=== PATIENT | male | born 1955 | race Caucasian/White ===

== ENCOUNTER 2020-03-06 11:48 | Emergency (ER) | payer OTHER, SELFPAY ==
[2020-03-06 12:15] VITALS: BP 172/96; PULSE 62; RESP 16; TEMP 37.1; O2SAT 98
--- NOTE | 2020-03-06 12:45 | ED.GENADULT ---
HPI - General Adult General Chief complaint: Upper Respiratory Infection Stated complaint: Sore Throat/Headaches Time Seen by Provider: 03/06/20 12:45 Source: patient and RN notes reviewed Mode of arrival: ambulatory Limitations: no limitations History of Present Illness HPI narrative: 65-year-old male presents with complaints of upper respiratory infection symptoms, sore throat with pus pockets for the past 3-4 days. Perry reports that everyone in household has been ill, can not recall who was ill first. Symptoms increased over the past 24-48 hours, step sone symptoms increased, everyone came in for evaluation to rule out COVID-19. Tylenol, last on 03/05/20 and Ibuprofen last today at 09:00 with little relief. Sore throat. Pain bilateral. Denies cough and chest congestion. Rhinorrhea and nasal congestion. Exacerbating factors swallowing. No high fevers, sweats, or chills. No nausea, vomiting, and abdominal pain. Denies chest pain, dyspnea, coughing up blood, jaw pain, facial pain, foreign body sensation. The patient reports he have not been diagnosed with COVID-19. The patient reports he is not waiting for the results of a COVID-19 lab test. The patient reports he do not have fever, chills, weakness, or fatigue. The patient reports he do not have a new or worsening cough or shortness of breath. Denies chest pain. The patient reports he do not have any loss of taste, sore throat, and diarrhea. Denies recent traveling. Denies concerns for COVID-19 or exposures been home with limited outdoor exposure except for essential household needs, work, and return home. At this time, patient is not suspected of having COVID-19. Some parts of this dictation were generated by voice recognition software and may contain typographical and/or grammatical inaccuracies. Related Data Home Medications Medication Instructions Recorded Confirmed levothyroxine 03/06/20 testosterone [Androderm] 03/06/20 Allergies Allergy/AdvReac Type Severity Reaction Status Date / Time No Known Allergies Allergy Verified 03/06/20 12:31 Review of Systems Review of Systems: Narrative: CONSTITUTIONAL: Denies fever, chills, sweats. EYES: Denies visual changes, redness, discharge. ENT: Complains of rhinorrhea, congestion. Denies otalgia. CARDIOVASCULAR: Denies chest pain, palpitations, edema. RESPIRATORY: Denies dyspnea, wheezing, cough. GASTROINTESTINAL: Denies abdominal pain, nausea, vomiting, diarrhea. SKIN: Denies rash or itching. MUSCULOSKELETAL: Denies acute back pain, joint pain. NEUROLOGIC: Denies numbness or focal weakness. PSYCHIATRIC: Denies anxiety or depression. All systems reviewed & are unremarkable except as noted in HPI and below PMFSH Past Medical History Medical History (Updated 03/11/20 @ 19:04 by ASHLEY Ugarte) Hypothyroidism Low serum testosterone level in male Thyroid cancer Surgical History Surgical History (Updated 03/11/20 @ 18:20 by ASHLEY Ugarte) History of arthroscopic knee surgery bilateral History of thyroidectomy Hx of appendectomy Family History Family History Father Malignant neoplasm of prostate Mother Family history of diabetes mellitus in first degree relative Family history of renal failure Social History Social History (Updated 03/11/20 @ 18:17 by ASHLYE Ugarte) Smoking status: Never smoker Tobacco type: cigarettes Second hand tobacco smoke exposure: No Alcohol intake: current Substance use: never Living arrangements: with family Occupation/Education: occupation Gender identity (if verbalized by the patient): Male Sexual Orientation (if Verbalized by the Patient): Straight or Heterosexual Comments At time of signature, agree with nurse past medical, surgical, social, and family history. There is no relevant family history pertinent to the presenting complaint. Exam Narr
== END 2020-03-06 13:25 | disposition home or self-care (01) ==
PROVIDERS: Emergency Provider Nurse Practitioner Family; PCP Registered Nurse
DX: J02.9 Acute pharyngitis, unspecified (principal); Z20.828 Contact with and (suspected) exposure to other viral communicable diseases; Z85.850 Personal history of malignant neoplasm of thyroid; E89.0 Postprocedural hypothyroidism
CPT/HCPCS: 87081; 87804; 87880; 99203; G0463

== ENCOUNTER 2020-03-07 07:58 | Outpatient (NON) | payer OTHER, SELFPAY ==
[2020-03-07 19:31] LABS: SARS-CoV-2 RNA PCR Positive
== END 2020-03-07 07:59 ==
PROVIDERS: PCP Registered Nurse; Visit Provider Nurse Practitioner Family
DX: U07.1 COVID-19 (principal)
CPT/HCPCS: 87635; C9803; U0003

== ENCOUNTER 2021-11-24 14:26 | Outpatient (CLI) | payer MEDICARE, OTHER, SELFPAY ==
--- NOTE | 2021-11-24 14:45 | ECG_ITS ---
Measurements Intervals [place] Rate: 55 P: 73 ID: 192 QRS: 38 QRSD: 94 T: 41 QT: 432 QTc: 413 Interpretive Statements SINUS BRADYCARDIA EARLY PRECORDIAL R/S TRANSITION BASELINE ARTIFACT- I, II, III, AVR, AVL BORDERLINE ECG NO PREVIOUS ECG AVAILABLE FOR COMPARISON Electronically Signed On 11-24-2021 15:12:18 CDT by Lionel Washburn D.O.
[2021-11-24 15:15] LABS: Anion Gap 13 mmol/L (8-16); Blood Urea Nitrogen 33 mg/dL (9-20); Calcium 9.5 mg/dL (8.4-10.2); Carbon Dioxide 34 mmol/L (22-30); Chloride 93 mmol/L (98-107); Estimated Glomerular Filt Rate 41; Glucose 113 mg/dL (65-110); Potassium 2.9 mmol/L (3.4-5.0); Sodium 140 mmol/L (137-145)
== END 2021-11-24 14:27 | disposition home or self-care (01) ==
PROVIDERS: Anesthesiology; PCP Registered Nurse; Visit Provider Urology
DX: E11.9 Type 2 diabetes mellitus without complications (principal); Z01.818 Encounter for other preprocedural examination; R94.31 Abnormal electrocardiogram [ECG] [EKG]
CPT/HCPCS: 36415; 80048; 93005

== ENCOUNTER 2021-11-25 01:35 | Day surgery (SDC) | payer MEDICARE, OTHER, SELFPAY ==
--- NOTE | 2021-11-22 07:29 | PM.HPGS ---
History of Present Illness History of Present Illness Consent: Risks, benefits, and alternatives have been discussed and questions answered. Patient agrees to proceed with procedure. Chief complaint: BPH Narrative: Perry Hollingsworth is a 66 year old male who has been a patient in our practice since May 2008. He has longstanding outlet obstructive voiding symptoms that it started to progress despite medical management with finasteride. Urodynamics show peak flow of 3.5 cc/second. Cystoscopy shows lateral lobe enlargement without a significant median lobe. Transrectal ultrasonography shows a prostate volume of 56.3 cc. He has been found to have a normal PSA. we discussed surgical options including TURP, GreenLight laser therapy, Rezum an Urolift. He has elected for the latter. He is aware of the risk including, but not limited to, adverse cardiopulmonary events, postoperative bleeding, persistent irritable and or obstructive voiding symptoms, retrograde ejaculation. Review of Systems Cardiovascular: Cardiovascular: Denies chest pain, Denies lightheadedness, Denies palpitations and Denies dyspnea Respiratory: Respiratory: Denies dyspnea Gastrointestinal: Gastrointestinal: Denies diarrhea, Denies nausea and Denies vomiting Genitourinary: Genitourinary: Denies hematuria and Denies dysuria Endocrine: Endocrine: Denies palpitations PMFSH Past Medical History Medical History (Updated 11/22/21 @ 07:31 by Vlad Covington MD) Hypothyroidism Low serum testosterone level in male Thyroid cancer Surgical History Surgical History (Updated 03/11/20 @ 18:20 by ASHLEY Ugarte) History of arthroscopic knee surgery bilateral History of thyroidectomy Hx of appendectomy Family History Family History Father Malignant neoplasm of prostate Mother Family history of diabetes mellitus in first degree relative Family history of renal failure Social History Social History (Updated 03/11/20 @ 18:17 by ASHLEY Ugarte) Smoking status: Never smoker Tobacco type: cigarettes Second hand tobacco smoke exposure: No Alcohol intake: current Substance use: never Gender identity (if verbalized by the patient): Male Sexual Orientation (if Verbalized by the Patient): Straight or Heterosexual Meds Home Medications and Allergies Home Medications Medication Instructions Recorded Confirmed Type levothyroxine 150 mcg tablet 03/06/20 History testosterone 4 mg/24 hr 03/06/20 History transdermal 24 hour patch (Androderm) Allergies Allergy/AdvReac Type Severity Reaction Status Date / Time No Known Allergies Allergy Verified 03/06/20 12:31 Exam Const: General: no acute distress Resp: Effort & Inspection: normal respiratory effort GI: Inspection: non-distended GI Palp: No abdominal tenderness and No Guarding due to palpation present (GI) Auscultation: normal bowel sounds Assessment and Plan Assessment and plan (1) BPH loc w urin obs/LUTS: Code(s): N40.1 - Benign prostatic hyperplasia with lower urinary tract symptoms Status: Acute
[2021-11-23 11:29] VITALS: BMI 29.5
--- NOTE | 2021-11-23 11:41 | PC.NURSE ---
PRE-OP INSTRUCTIONS, PLEASE READ CAREFULLY Report to the Outpatient Waiting Room, entrance under the green pavilion located off [facility], at time _0730_ on date _11/25/21_. OR Time: _0930_. Time changes happen often and if your time is changed the preop area will call you the afternoon before. - You and your visitor will be asked to self-screen and do not enter if you have any COVID symptoms. - Only one visitor and NO children visitors are allowed at this time. - The patient visitor is requested to leave or wait in car when not with patient due to restrictions. - A mask is required within the hospital. Patients may have clear liquids (water, carbonated beverages, clear teas, apple juice) until 3 hours prior to surgery (0630 AM) with a maximum of 20 ounces. - No food from midnight until time of surgery Take the following medications with a SIP of water the morning of surgery: _LEVOTHYROXINE_ Medications to discontinue per physician _N/A_, Date to take last dose Please no make-up, nail scottish, hairspray, perfume, deodorant, or body powder the day of surgery. No jewelry (including any body piercings) or valuables the day of surgery, leave them at home. Please take a shower or bath the night before, or the morning of, surgery with an antibacterial soap. Wear comfortable, loose fitting clothing. - Jewelry must be removed prior to entering the operating room. Rings and piercings that are not removed may be cut off. - The hospital will not accept responsibility for valuables. - Please leave all valuables, including medications, at home the day of surgery. If you are going home after surgery, a licensed driver wheelchair must drive you home. - NO public transportation without another adult. - We recommend that an adult stay with you for 24 hours following discharge. - We also recommend that you do not drive, make important decision, drink alcoholic beverages, or take any drugs that were not prescribed by your health care provider for at least 24 hours after your discharge time. Follow any additional instructions given to you from your surgeon. If you or anyone in your household have experienced Covid symptoms in the past week, please notify your surgeon or the nurse liaison at the phone number below for possible testing. Telephone instructions given to ____PT and asked if any additional questions and then verbalized understanding. Patient advised to call surgeon office or pre surgery nurse liaison [phone] if any additional questions.
--- NOTE | 2021-11-25 07:03 | WPDHPUPDATE1 ---
History and Physical Update Update Date/Time: 11/25/21 07:03 History and Physical has been reviewed, including an updated exam of the patient. There are NO changes in the patient's condition. Risks, benefits, and alternatives have been discussed and questions answered. Patient agrees to proceed with procedure.
[2021-11-25 07:49] VITALS: BP 149/75; PULSE 51; RESP 20; TEMP 36.8; O2SAT 99
--- NOTE | 2021-11-25 08:09 | WPDANESEPPF ---
Anes - Initial Pre Proc Eval Procedure: Operation Date: 11/25/21 09:30 Proposed Procedures p Urolift - Vlad Covington MD Date/Time: 11/25/21 08:09 Surgeon: Vlad Covington MD Pre Op Diagnosis: BPH Patient Data Age: 66 Gender: M Height: 1.75 m Weight: 90.9 kg Allergies Allergy/AdvReac Type Severity Reaction Status Date / Time metoclopramide [From Reglan] AdvReac Mild ANXIETY/ORCIO Verified 11/25/21 07:46 SEA Home Medications Medication Instructions Recorded Confirmed Type testosterone 4 mg/24 hr See Rx Instructions .Route .COMPLEX 03/06/20 11/25/21 History transdermal 24 hour patch (Androderm) chlorthalidone 25 mg tablet 25 mg QAM 11/23/21 11/25/21 History dapagliflozin 10 mg tablet 10 mg QAM 11/23/21 11/25/21 History (Farxiga) levothyroxine 137 mcg tablet 137 mcg QAM 11/23/21 11/25/21 History rosuvastatin 20 mg tablet 20 mg EVERY OTHER DAY 11/23/21 11/25/21 History tamsulosin 0.4 mg capsule 0.4 mg PO HS 11/23/21 11/25/21 History Patient hx anesthesia problems: none Family hx anesthesia problems: none Results Review: All pre-operative results and documents have been reviewed as part of the pre-operative evaluation. [facility] Past Medical History Medical History (Updated 11/25/21 @ 08:09 by Dewayne Bella MD) Diabetes Hypothyroidism Low serum testosterone level in male Thyroid cancer Surgical History Surgical History History of arthroscopic knee surgery bilateral History of thyroidectomy Hx of appendectomy Family History Family History Father Malignant neoplasm of prostate Mother Family history of diabetes mellitus in first degree relative Family history of renal failure Social History Social History Smoking status: Never smoker Tobacco type: cigarettes Second hand tobacco smoke exposure: No Alcohol intake: current Drinks per week: 2 Substance use: never Substance use type: does not use Living arrangements: with family Gender identity (if verbalized by the patient): Male Sexual Orientation (if Verbalized by the Patient): Straight or Heterosexual Spiritual care concerns: No Anes - Eval Final PreProcedure Day of Procedure 11/25/21 08:09 Patient weight: overweight Heart: regular rate and rhythm Lungs: clear to auscultation Airway: Mallampati scale class II Neurological: alert and oriented Last oral intake: >/= 8 hours ASA classification: III Emergent: no Anesthetic plan: proceed Anesthesia type and monitoring: general GIVS and standard monitoring Results Review: All pre-operative results and documents have been reviewed as part of the pre-operative evaluation. Informed Consent: The patient's anesthetic plan and its attendant risks and benefits were discussed with the patient/family/POA. Questions were solicited and answers provided to the satisfaction of the patient/family/POA.
[2021-11-25] MEDS: LACTATED RINGERS 1,000 ML 30 ML IV CONT (08:15)
[2021-11-25 08:25] LABS: Glucose Point of Care 116 mg/dl (65-105)
[2021-11-25] MEDS: ceFAZolin 2 GM/D5W 50 ML 2 GM/50 ML BAG IVPB (08:53)
[2021-11-25] MEDS: LIDOCAINE HCL 2% GEL UROJET 10 ML PKG MUCOUS MEM (09:02)
--- NOTE | 2021-11-25 09:23 | W.PM.PROC2 ---
Procedure Note - Detailed Date of Procedure 11/25/21 Pre-op Diagnosis BPH Post-op Diagnosis Same Procedure Performed UroLift Surgeon Vlad Covington MD Description of Procedure The patient was prepped and draped in a routine fashion after the uneventful induction of a general LMA anesthetic. A 20F cystoscope was inserted into the bladder. The cystoscopy bridge was replaced with a UroLift delivery device. The first treatment site was the patient's right side approximately 1.5cm distal to the bladder neck. The distal tip of the delivery device was then angled laterally approximately 20 degrees at this position to compress the lateral lobe. The trigger was pulled, thereby deploying a needle containing the implant through the prostate. The needle was then retracted, allowing one end of the implant to be delivered to the capsular surface of the prostate. The implant was then tensioned to assure capsular seating and removal of slack monofilament. The device was then angled back toward midline and slowly advanced proximally (typically 3 to 4 mm) until cystoscopic verification of the monofilament being centered in the delivery bay. The urethral end piece was then affixed to the monofilament thereby tailoring the size of the implant. Excess filament was then severed. The delivery device was then re-advanced into the bladder. The delivery device was then replaced with cystoscope and bridge and the implant location and opening effect was confirmed cystoscopically. The same procedure was then repeated on the left side, and two additional implants were delivered just proximal to the verumontanum, again one on right and one on left side of the prostate, following the same technique. Cystoscopy then revealed a persistent area of obstruction the left side of the prostatic urethra so one more implant were delivered in the mid-prostate. Therefore, a total of 5 implants were delivered. A final cystoscopy was conducted first to inspect the location and state of each implant and second, to confirm the presence of a continuous anterior channel was present through the prostatic urethra with irrigation flow turned off. At this point the cystoscope was removed and the patient was taken to the PACU in good condition. Drains No Packing No Pathology None sent Complications No immediate complications Condition Stable Disposition PACU
[2021-11-25 09:25] VITALS: BP 96/58; PULSE 46; RESP 12; O2SAT 98
[2021-11-25 09:28] LABS: Glucose Point of Care 125 mg/dl (65-105)
[2021-11-25 09:45] VITALS: BP 144/84; PULSE 50; RESP 12
== END 2021-11-25 10:24 | disposition home or self-care (01) ==
PROVIDERS: PCP Registered Nurse; Visit Provider Urology
PROC: 0T7D8DZ Dilation of Urethra with Intraluminal Device, Via Natural or Artificial Opening Endoscopic (ICD-10-PCS; CPT 52441; principal; 2021-11-25 09:30)
DX: N40.1 Benign prostatic hyperplasia with lower urinary tract symptoms (principal); N13.8 Other obstructive and reflux uropathy; E29.1 Testicular hypofunction; E11.9 Type 2 diabetes mellitus without complications; E89.0 Postprocedural hypothyroidism; Z85.850 Personal history of malignant neoplasm of thyroid; Z79.84 Long term (current) use of oral hypoglycemic drugs
CPT/HCPCS: C9740; 82948; A9270; J0690; J2704; J3010; J7120; L8699

== ENCOUNTER 2022-04-01 00:57 | Day surgery (SDC) | payer MEDICARE, OTHER, SELFPAY ==
[2022-03-24 15:31] VITALS: BMI 28.7
--- NOTE | 2022-03-31 09:17 | PC.NURSE ---
Patient stated during pre-op interview that he had done a cologuard test per Dr. Ivette Parkinson office this year and it resulted positive. Verified with Dr. Parkinson office, requested this result to be faxed to Dr. Campos office. I notified Elvira Varghese of this test and possible need to change patients Diagnosis from Screening to Positive Cologuard on 03/25/2022.
[2022-04-01 08:55] VITALS: BP 163/78; PULSE 78; RESP 18; TEMP 36.4; O2SAT 78; BMI 28.8
[2022-04-01] MEDS: LACTATED RINGERS 1,000 ML 150 ML IV CONT (09:08)
--- NOTE | 2022-04-01 09:21 | PM.HPGS ---
History of Present Illness History of Present Illness Consent: Risks, benefits, and alternatives have been discussed and questions answered. Patient agrees to proceed with procedure. Chief complaint: neoplasm screening, positive cologuard test Narrative: Perry Hollingsworth is a 67 year old male Presents for screening colonoscopy. Patient recently found to have positive Cologuard test. Patient reports his current weight appetite bowel movements are normal. He denies any abdominal pain. He denies any bleeding. States there is no known family history of colon or rectal disease. Patient also reports that he may have been told he had Trammell's esophagus in the past performed elsewhere. Old records are not immediately available for review. Currently denies heartburn. Is on no acid suppressing medications. Review of Systems Review of Systems: Review of systems noncontributory. [facility] Past Medical History Medical History (Updated 04/01/22 @ 09:23 by Zion Chavarria MD) Diabetes Hypothyroidism Low serum testosterone level in male Thyroid cancer Surgical History Surgical History History of arthroscopic knee surgery bilateral History of thyroidectomy Hx of appendectomy Family History Family History Father Malignant neoplasm of prostate Mother Family history of diabetes mellitus in first degree relative Family history of renal failure Social History Social History Smoking status: Never smoker Tobacco type: cigarettes Second hand tobacco smoke exposure: No Alcohol intake: current Drinks per week: 2 Alcohol use details: BEERS Substance use: never Substance use type: does not use Living arrangements: with family Occupation/Education: occupation Gender identity (if verbalized by the patient): Male Sexual Orientation (if Verbalized by the Patient): Straight or Heterosexual Spiritual care concerns: No Meds Home Medications and Allergies Home Medications Medication Instructions Recorded Confirmed Type chlorthalidone 25 mg tablet 25 mg PO QAM 11/23/21 03/24/22 History dapagliflozin 10 mg tablet 10 mg PO QAM 11/23/21 03/24/22 History (Farxiga) levothyroxine 137 mcg tablet 137 mcg PO QAM 11/23/21 03/24/22 History rosuvastatin 20 mg tablet 20 mg PO EVERY OTHER DAY 11/23/21 03/24/22 History tamsulosin 0.4 mg capsule 0.4 mg PO HS 11/23/21 03/24/22 History testosterone cypionate 200 mg/mL 200 mg IM WEEKLY 03/24/22 03/24/22 History intramuscular oil Allergies Allergy/AdvReac Type Severity Reaction Status Date / Time metoclopramide [From Reglan] AdvReac Mild ANXIETY/ROCIO Verified 11/25/21 07:46 SEA Vital Signs Vital Signs - 24 hr 04/01/22 08:55 Temperature 97.5 F L Pulse Rate 78 Respiratory Rate 18 Blood Pressure 163/78 H Pulse Oximetry 78 L Oxygen Delivery Room Air Exam Narrative: Physical exam reveals patient to be alert. Vital signs stable. HEENT exam is unremarkable. Patient is anicteric. Lungs are clear to auscultation and percussion. Heart is without murmur or extra sounds. Abdomen bowel sounds are present soft nontender with no organomegaly. Digital external rectal exam normal. Assessment and Plan Assessment and plan (1) Positive colorectal cancer screening using Cologuard test: Code(s): R19.5 - Other fecal abnormalities Status: Acute Assessment and Plan: Patient recently found to have positive Cologuard test. For this reason referred for colonoscopy. Colonoscopy will be performed for screening purposes. Further recommendations may be given after endoscopy. Patient gives a history of may be being found to have Trammell's esophagus in the past. No old records for review. He denies heartburn. He is on no medications. Suggest review of old records. If indeed
--- NOTE | 2022-04-01 09:30 | WPDANESEPPF ---
Anes - Initial Pre Proc Eval Procedure: Operation Date: 04/01/22 10:00 Proposed Procedures p Screening Colonoscopy - Zion Chavarria MD Date/Time: 04/01/22 09:30 Surgeon: Zion Chavarria MD Pre Op Diagnosis: neoplasm screening, positive cologuard test Patient Data Age: 67 Gender: M Height: 1.75 m Weight: 88.5 kg Last Vital Signs Temp 97.5 F L 04/01/22 08:55 Pulse 78 04/01/22 08:55 Resp 18 04/01/22 08:55 BP 163/78 H 04/01/22 08:55 Pulse Ox 78 L 04/01/22 08:55 O2 Del Method Room Air 04/01/22 08:55 Allergies Allergy/AdvReac Type Severity Reaction Status Date / Time metoclopramide [From Reglan] AdvReac Mild ANXIETY/ROCIO Verified 11/25/21 07:46 SEA Home Medications Medication Instructions Recorded Confirmed Type chlorthalidone 25 mg tablet 25 mg PO QAM 11/23/21 03/24/22 History dapagliflozin 10 mg tablet 10 mg PO QAM 11/23/21 03/24/22 History (Farxiga) levothyroxine 137 mcg tablet 137 mcg PO QAM 11/23/21 03/24/22 History rosuvastatin 20 mg tablet 20 mg PO EVERY OTHER DAY 11/23/21 03/24/22 History tamsulosin 0.4 mg capsule 0.4 mg PO HS 11/23/21 03/24/22 History testosterone cypionate 200 mg/mL 200 mg IM WEEKLY 03/24/22 03/24/22 History intramuscular oil Patient hx anesthesia problems: none Family hx anesthesia problems: none Results Review: All pre-operative results and documents have been reviewed as part of the pre-operative evaluation. [facility] Past Medical History Medical History (Updated 04/01/22 @ 09:23 by Zion Chavarria MD) Diabetes Hypothyroidism Low serum testosterone level in male Thyroid cancer Surgical History Surgical History History of arthroscopic knee surgery bilateral History of thyroidectomy Hx of appendectomy Family History Family History Father Malignant neoplasm of prostate Mother Family history of diabetes mellitus in first degree relative Family history of renal failure Social History Social History Smoking status: Never smoker Tobacco type: cigarettes Second hand tobacco smoke exposure: No Alcohol intake: current Drinks per week: 2 Alcohol use details: BEERS Substance use: never Substance use type: does not use Living arrangements: with family Occupation/Education: occupation Gender identity (if verbalized by the patient): Male Sexual Orientation (if Verbalized by the Patient): Straight or Heterosexual Spiritual care concerns: No Anes - Eval Final PreProcedure Day of Procedure 04/01/22 09:30 Patient weight: normal Heart: regular rate and rhythm Lungs: clear to auscultation Airway: Mallampati scale class II Neurological: alert and oriented Last oral intake: >/= 8 hours ASA classification: III Emergent: no Anesthetic plan: proceed Anesthesia type and monitoring: general GIVS and standard monitoring Results Review: All pre-operative results and documents have been reviewed as part of the pre-operative evaluation. Informed Consent: The patient's anesthetic plan and its attendant risks and benefits were discussed with the patient/family/POA. Questions were solicited and answers provided to the satisfaction of the patient/family/POA.
[2022-04-01 09:52] VITALS: BP 87/55; PULSE 56; RESP 15; O2SAT 95
[2022-04-01 10:02] VITALS: BP 99/66; PULSE 54; RESP 17; O2SAT 97
[2022-04-01 10:12] VITALS: BP 112/69; PULSE 55; RESP 19; O2SAT 96
== END 2022-04-01 10:16 | disposition home or self-care (01) ==
PROVIDERS: PCP Registered Nurse; Visit Provider Internal Medicine Gastroenterology
PROC: 0DJD8ZZ Inspection of Lower Intestinal Tract, Via Natural or Artificial Opening Endoscopic (ICD-10-PCS; CPT 45378; principal; 2022-04-01 10:00)
DX: Z12.11 Encounter for screening for malignant neoplasm of colon (principal); R19.5 Other fecal abnormalities; K64.8 Other hemorrhoids; K57.30 Diverticulosis of large intestine without perforation or abscess without bleeding; E11.9 Type 2 diabetes mellitus without complications; E89.0 Postprocedural hypothyroidism; E29.1 Testicular hypofunction; Z85.850 Personal history of malignant neoplasm of thyroid; Z79.84 Long term (current) use of oral hypoglycemic drugs; Z79.890 Hormone replacement therapy
CPT/HCPCS: G0121; J2704; J7120

== ENCOUNTER 2023-08-23 15:02 | Outpatient (CLI) | payer MEDICARE, OTHER, SELFPAY ==
--- NOTE | ~2023-08-23 | XR_ITS ---
XR cervical spine 4-5V Ordering provider: Henrietta Higgins MD History: . S14.109A - Unspecified injury at unspecified level of cer... . Comparison: None. FINDINGS: VERTEBRAL BODIES: Normal height and alignment. No visible fracture or subluxation. The dens is intact . DISK SPACES: Narrowing of the disc spaces C5-C6, and C6-C7. Multilevel facet joint disease. Multileve l uncovertebral joint start changes. Osteoarthritic changes of the medial and left atlantooccipital j oints. No evidence however anterolisthesis. PARASPINOUS SOFT TISSUES: No prevertebral soft tissue swelling. IMPRESSION: No acute osseous abnormality cervical spine. Consider follow up MRI of the cervical spine if patient has continued neck pain and if there is judy rn for spinal stenosis. Reviewed, dictated and finalized at location A. IMPRESSION: No acute osseous abnormality cervical spine. Consider follow up MRI of the cervical spine if patient has continued neck pain and if there is concern for spinal stenosis.
== END 2023-08-23 15:03 ==
PROVIDERS: PCP Physician Assistant; Visit Provider Neurological Surgery
DX: S14.109A Unspecified injury at unspecified level of cervical spinal cord, initial encounter (principal); X58.XXXA Exposure to other specified factors, initial encounter
CPT/HCPCS: 72050

== ENCOUNTER 2023-12-21 00:38 | Day surgery (SDC) | payer MEDICARE, OTHER, SELFPAY ==
--- NOTE | 2023-12-12 08:01 | PM.IMHP ---
H&P: HPI History of Present Illness Date/Time: 12/12/23 08:01 Chief Complaint: Prostate enlargement Narrative: 68-year-old with longstanding difficulty with bladder outlet obstructive voiding symptoms consisting of both irritable and obstructive symptoms. He had an initial response to UroLift in November 2021 but now is having frequency urgency with nocturia and slowing of his stream, among other voiding complaints. He remains on alpha blockers. After discussion of options he elects for TURP. Prostate volume in the past was measured at 56 g. He elects to proceed with TURP in his aware of the risks including, but not limited to, adverse cardiopulmonary events, hematuria, persistent voiding symptoms and need for additional procedures Review of Systems Cardiovascular: Cardiovascular: Denies chest pain, Denies lightheadedness, Denies palpitations and Denies dyspnea Respiratory: Respiratory: Denies dyspnea Gastrointestinal: Gastrointestinal: Denies diarrhea, Denies nausea and Denies vomiting Genitourinary: Genitourinary: Denies hematuria and Denies dysuria Endocrine: Endocrine: Denies palpitations PMFSH Past Medical History Medical History Hypogonadism Hypothyroidism Low serum testosterone level in male Rotator cuff (capsule) sprain Thyroid cancer Surgical History Surgical History History of arthroscopic knee surgery bilateral History of thyroidectomy Hx of appendectomy Family History Family History Father Malignant neoplasm of prostate Diabetes mellitus Hypertension Heart disease Mother Family history of renal failure Hypertension Diabetes mellitus Cerebrovascular accident Social History Social History Smoking status: Never smoker Tobacco type: cigarettes Second hand tobacco smoke exposure: No Alcohol intake: current Drinks per week: 2 Alcohol use details: BEERS Substance use: never Substance use type: does not use Do You Feel Safe in your Home?: Yes Lack of Transportation: No Lack of Food: Never True Current Housing: I Have Housing Concerned About Future Housing: No Difficulty Paying Gas/Electric Bills: No Difficulty Paying for Meds: No Currently Unemployed: YES Education: High School Diploma/GED Difficulty w/ Childcare or Family Care: No Living arrangements: with family Occupation/Education: occupation Gender identity (if verbalized by the patient): Male Sexual Orientation (if Verbalized by the Patient): Straight or Heterosexual Spiritual care concerns: No Meds Home Medications and Allergies Home Medications Medication Instructions Recorded Confirmed Type chlorthalidone 25 mg tablet 25 mg PO QAM 11/23/21 09/28/23 History finasteride 5 mg tablet 5 mg PO DAILY 06/21/23 09/28/23 History testosterone cypionate 100 mg/mL 125 mg (1.25 mL) IM .every 14 days 09/28/23 09/28/23 Rx intramuscular oil #10 mL dapagliflozin propanediol 10 mg 10 mg PO QAM #90 tabs 10/18/23 Rx tablet (Farxiga) rosuvastatin 20 mg tablet 20 mg PO EVERY OTHER DAY #90 tabs 10/18/23 Rx levothyroxine 137 mcg tablet 137 mcg PO DAILY #90 tabs 12/05/23 Rx (Synthroid) Allergies Allergy/AdvReac Type Severity Reaction Status Date / Time metoclopramide [From Reglan] AdvReac Mild ANXIETY/ROCIO Verified 11/02/23 14:04 SEA Exam Const: General: no acute distress Resp: Effort & Inspection: normal respiratory effort GI: Inspection: non-distended GI Palp: No abdominal tenderness and No Guarding due to palpation present (GI) Auscultation: normal bowel sounds Assessment and Plan Assessment and plan (1) BPH loc w urin obs/LUTS: Code(s): N40.1 - Benign prostatic hyperplasia with lower urinary tract symptoms Status: Acute As
--- NOTE | 2023-12-15 10:14 | PC.NURSE ---
Report to the Outpatient Waiting Room, entrance under the green pavilion located off [facility], at time _10 AM on date _12/21/23 . Planned Procedure Time: __1200 NOON .? Time changes happen often and if your time is changed the preop area will call you the afternoon before. - You and your visitor will be asked to self-screen and do not enter if you have any COVID symptoms. Please call surgeon if you need to reschedule. - A mask is optional within the hospital at this time. Patients may have clear liquids (water, carbonated beverages, clear teas, apple juice) until 3 hours prior to surgery( 9AM) with a maximum of 20 ounces. - No food from midnight until time of surgery and no smoking - Infants may have breast milk until 4 hours before surgery, infant formula 6 hours prior to surgery. - Children will be allowed to drink immediately following surgery.? If applicable, please bring a bottle or sippy cup to assist with drinking. Juice, water, soda, and popsicles are readily available.? For infants on formula, please bring formula the day of surgery.? Pacifiers are allowed. Take only the following medications with a SIP of water on the morning of surgery: ___LEVOTHYROXINE DO NOT STOP ANY OF YOUR OTHER PRESCRIPTION MEDICATIONS PRIOR TO SURGERY EXCEPT THE FOLLOWING Medications to discontinue per physician ____HOLD ALL VITAMINS AND SUPPLEMENTS 3 DAYS PRE OP.LAST DOSE 12/17/23 Date to take last dose Please no make-up, nail ukrainian, hairspray, perfume, deodorant, or body powder the day of surgery.? No jewelry (including any body piercings) or valuables the day of surgery, leave them at home.? Please take a shower or bath the night before, or the morning of, surgery with an antibacterial soap.? Wear comfortable, loose fitting clothing.? Children are encouraged to wear pajamas. - Jewelry must be removed prior to entering the operating room.? Rings and piercings that are not removed may be cut off. - The hospital will not accept responsibility for valuables.? - Please leave all valuables, including medications, at home the day of surgery. If you are going home after surgery, a licensed otr company driver must drive you home.? - NO public transportation without another adult if you receive anesthesia. - We recommend that an adult stay with you for 24 hours following discharge. - We also recommend that you do not drive, make important decision, drink alcoholic beverages, or take any drugs that were not prescribed by your health care provider for at least 24 hours after your discharge time. For Pediatric surgeries, we recommend two adults accompany the child home. Follow any additional instructions given to you from your surgeon. Telephone instructions given to ___PT and asked if any additional questions and then verbalized understanding. Patient advised to call surgeon office or pre surgery nurse liaison [phone] if any additional questions.
[2023-12-15 10:28] VITALS: BMI 28.0
[2023-12-21] VITALS (11 sets, daily range): BP systolic 119–173; BP diastolic 65–89; PULSE 48–80; RESP 8–18; TEMP 35.5–36.7; O2SAT 93–100; BMI 27.8
--- NOTE | 2023-12-21 06:12 | WPDHPUPDATE1 ---
History and Physical Update Update Date/Time: 12/21/23 06:12 History and Physical has been reviewed, including an updated exam of the patient. There are NO changes in the patient's condition. Risks, benefits, and alternatives have been discussed and questions answered. Patient agrees to proceed with procedure.
--- NOTE | 2023-12-21 10:28 | WPDANESEPPF ---
Anes - Initial Pre Proc Eval Procedure: Operation Date: 12/21/23 12:00 Proposed Procedures p Trans Urethral Resection Prostate - Vlad Covington MD Date/Time: 12/21/23 10:28 Surgeon: Vlad Covington MD Pre Op Diagnosis: BPH Patient Data Age: 68 Gender: M Height: 1.75 m Weight: 86.2 kg Allergies Allergy/AdvReac Type Severity Reaction Status Date / Time metoclopramide [From Reglan] AdvReac Mild ANXIETY/ROCIO Verified 12/15/23 10:02 SEA Home Medications Medication Instructions Recorded Confirmed Type finasteride 5 mg tablet 5 mg PO DAILY 06/21/23 12/15/23 History testosterone cypionate 100 mg/mL 125 mg (1.25 mL) IM .every 14 days 09/28/23 12/15/23 Rx intramuscular oil #10 mL dapagliflozin propanediol 10 mg 10 mg PO QAM #90 tabs 10/18/23 12/15/23 Rx tablet (Farxiga) rosuvastatin 20 mg tablet 20 mg PO EVERY OTHER DAY #90 tabs 10/18/23 12/15/23 Rx levothyroxine 137 mcg tablet 137 mcg PO DAILY #90 tabs 12/05/23 12/15/23 Rx (Synthroid) cholecalciferol (vitamin D3) 50 50 mcg PO DAILY 12/15/23 12/15/23 History mcg (2,000 unit) tablet losartan 25 mg tablet 25 mg PO DAILY 12/15/23 12/15/23 History multivit with minerals-iron 18 1 tablet PO DAILY 12/15/23 12/15/23 History mg-folic ac 400 mcg-vit K 25 mcg tablet (Adults Multivitamin) Patient hx anesthesia problems: none Family hx anesthesia problems: none Results Review: All pre-operative results and documents have been reviewed as part of the pre-operative evaluation. [facility] Past Medical History Medical History Hypogonadism Hypothyroidism Low serum testosterone level in male Rotator cuff (capsule) sprain Thyroid cancer Surgical History Surgical History History of arthroscopic knee surgery bilateral History of thyroidectomy Hx of appendectomy Family History Family History Father Malignant neoplasm of prostate Diabetes mellitus Hypertension Heart disease Mother Family history of renal failure Hypertension Diabetes mellitus Cerebrovascular accident Social History Social History Smoking status: Never smoker Tobacco type: cigarettes Second hand tobacco smoke exposure: No Alcohol intake: current Drinks per week: 2 Alcohol use details: BEERS Substance use: never Substance use type: does not use Do You Feel Safe in your Home?: Yes Lack of Transportation: No Lack of Food: Never True Current Housing: I Have Housing Concerned About Future Housing: No Difficulty Paying Gas/Electric Bills: No Difficulty Paying for Meds: No Currently Unemployed: YES Education: High School Diploma/GED Difficulty w/ Childcare or Family Care: No Living arrangements: with family Occupation/Education: occupation Gender identity (if verbalized by the patient): Male Sexual Orientation (if Verbalized by the Patient): Straight or Heterosexual Spiritual care concerns: No Anes - Eval Final PreProcedure Day of Procedure 12/21/23 10:28 Patient weight: overweight Heart: regular rate and rhythm Lungs: clear to auscultation Airway: Mallampati scale class II Neurological: alert and oriented Last oral intake: >/= 8 hours ASA classification: III Emergent: no Anesthetic plan: proceed Anesthesia type and monitoring: general LMA and standard monitoring Results Review: All pre-operative results and documents have been reviewed as part of the pre-operative evaluation. Informed Consent: The patient's anesthetic plan and its attendant risks and benefits were discussed with the patient/family/POA. Questions were solicited and answers provided to the satisfaction of the patient/family/POA.
[2023-12-21 10:50] LABS: Glucose Point of Care 88 mg/dl (65-105)
[2023-12-21 11:02] LABS: INR 1.1; Prothrombin Time 14.8 Seconds (11.1-14.7)
[2023-12-21 11:03] LABS: Partial Thromboplastin Time 31.1 Seconds (22.3-36.8)
[2023-12-21] MEDS: ceFAZolin 2 GM/D5W 50 ML 2 GM/50 ML BAG IVPB (11:03)
[2023-12-21] MEDS: LACTATED RINGERS 1,000 ML 30 ML IV CONT (11:07)
[2023-12-21] MEDS: LIDOCAINE HCL 2% GEL UROJET 10 ML PKG MUCOUS MEM (11:19)
--- NOTE | 2023-12-21 12:06 | W.PM.PROC2 ---
Procedure Note - Detailed Date of Procedure 12/21/23 Pre-op Diagnosis BPH Post-op Diagnosis Same Procedure Performed TURP Surgeon Vlad Covington MD Anesthesia General Description of Procedure The patient was brought to the operative suite where he is prepped and draped in routine sterile fashion while in the dorsal lithotomy position after the uneventful induction of a [general LMA/spinal] anesthetic. A 27 Bengali resectoscope sheath was placed into his bladder. He had no urethral strictures. The patient had [trilobar/bilobar] hyperplasia with a [small/moderate/large] median lobe. The bladder itself was endoscopically normal, showing no mucosal hyperemia, intravesical neoplasm or foreign bodies. There was a single, orthotopic ureteral orifice bilaterally. These orifices were identified and preserved throughout the remainder of the procedure. Attention was first turned to resection of the median lobe. This resection was undertaken from the bladder neck to the verumontanum and carried out until the transverse fibers of the bladder neck were identified. The left lateral lobe was then resected starting at the 6 o'clock position, working counter clockwise to the 12 o'clock position. Again, resection was carried out from the bladder neck to the verumontanum until the capsular fibers of the prostate were identified. The right lateral lobe was resected in a similar fashion starting at the 6 o'clock position working clockwise to the 12 o'clock position and carried out until the capsular fibers of the prostate were identified. Apical tissue was then circumferentially resected. All chips were evacuated from the bladder using an Ellik evacuator. Hemostasis was obtained with electric cautery. The ureteral orifices were again inspected and found to be without injury. Estimated blood loss throughout this procedure was []cc. The patient was taken to recovery room having tolerated this well. Drains Yes Packing No Pathology Yes Complications No immediate complications
[2023-12-21 12:19] LABS: Glucose Point of Care 83 mg/dl (65-105)
--- NOTE | 2023-12-21 13:32 | ADMGEN ---
This patient, Perry Hollingsworth, was admitted to 3 Med Surg Room 327-01. Patient/family oriented to hospital policies and general routines including ID bracelet, bed and alarms, visiting hours, pain management, procedures, bathroom and other care routines, personal items, smoking policy, room service/diet, and visiting hours. Information on how to activate the Rapid Response Team has been discussed. Patient/Family are encouraged to report perceived risks to care and to ask questions if they do not understand what they are told or what they should do.
[2023-12-21] MEDS: DEXTROSE 5%/LACTATED RINGERS 1,000 ML 125 ML IV CONT (13:46)
[2023-12-21] MEDS: DOCUSATE SODIUM 100 MG CAPSULE PO (16:26)
[2023-12-21] MEDS: HYOSCYAMINE SULFATE 0.125 MG TABLET SUBLINGUAL (16:26)
[2023-12-21] MEDS: ceFAZolin 1 GM/NS 50 ML 1 GM/50 ML BAG IVPB (18:04)
[2023-12-21] MEDS: HYDROcodone/acetaminophen (*CRX) 5-325 MG TABLET 1 TAB PO (20:20)
[2023-12-22] MEDS: ceFAZolin 1 GM/NS 50 ML 1 GM/50 ML BAG IVPB (02:33)
[2023-12-22] MEDS: HYDROcodone/acetaminophen (*CRX) 5-325 MG TABLET 1 TAB PO ×2 (02:34→07:08)
[2023-12-22 02:36] VITALS: BP 122/66; PULSE 50; RESP 14; TEMP 36.2; O2SAT 94
[2023-12-22 05:45] VITALS: BP 122/64; PULSE 55; RESP 14; TEMP 36.1; O2SAT 96
[2023-12-22] MEDS: LEVOTHYROXINE SODIUM 112 MCG TABLET PO (05:59)
[2023-12-22] MEDS: LEVOTHYROXINE SODIUM 25 MCG TABLET PO (05:59)
[2023-12-22 06:02] LABS: Hematocrit 50.2 % (42.0-52.0); Hemoglobin 16.7 g/dL (14.0-18.0)
[2023-12-22 06:11] LABS: Anion Gap 9 mmol/L (4-12); Blood Urea Nitrogen 18 mg/dL (9-20); Calcium 8.1 mg/dL (8.4-10.2); Carbon Dioxide 25 mmol/L (22-30); Chloride 102 mmol/L (98-107); Estimated CRCL calculation 69 ml/min; Estimated Glomerular Filt Rate > 60; Glucose 140 mg/dL (65-110); Potassium 4.1 mmol/L (3.4-5.0); Sodium 136 mmol/L (137-145)
[2023-12-22] MEDS: ACETAMINOPHEN 500 MG TABLET 1000 MG PO (07:00)
--- NOTE | 2023-12-22 07:26 | WPDUROPN2 ---
Progress Note: A&P Assessment and Plan (1) BPH loc w urin obs/LUTS: Code(s): N40.1 - Benign prostatic hyperplasia with lower urinary tract symptoms Status: Acute Assessment and Plan: Doing well POD #1 s/p TURP. CBI off now / voiding trial later this morning if urine remains clear. Subjective Subjective Date/Time Seen: 12/22/23 07:26 Interval history: Comfortable, no complaints Review of Systems Cardiovascular: Cardiovascular: Denies chest pain, Denies lightheadedness, Denies palpitations and Denies dyspnea Respiratory: Respiratory: Denies dyspnea Gastrointestinal: Gastrointestinal: Denies diarrhea, Denies nausea and Denies vomiting Genitourinary: Genitourinary: Denies hematuria and Denies dysuria Endocrine: Endocrine: Denies palpitations Exam Const: General: no acute distress Resp: Effort & Inspection: normal respiratory effort GI: Inspection: non-distended GI Palp: No abdominal tenderness and No Guarding due to palpation present (GI) Auscultation: normal bowel sounds Objective Data Vital Signs Vital Signs: Vital Signs - 24 hr 12/21/23 11:04 12/21/23 12:10 12/21/23 12:25 Temperature 97.3 F L 97.7 F Pulse Rate 51 L 48 L 56 L Respiratory Rate 8 L 14 Blood Pressure 173/79 H 136/72 159/75 H Pulse Oximetry 100 100 100 Oxygen Delivery Room Air Simple Face Mask Simple Face Mask Oxygen Flow Rate 6 6 12/21/23 12:35 12/21/23 12:40 12/21/23 12:55 Temperature 97.6 F Pulse Rate 51 L 56 L Respiratory Rate 12 14 Blood Pressure 159/79 H 151/77 H Pulse Oximetry 95 97 Oxygen Delivery Room Air Room Air Room Air Oxygen Flow Rate 12/21/23 13:02 12/21/23 13:17 12/21/23 13:47 Temperature 95.9 F L 96.0 F L 96.1 F L Pulse Rate 56 L 52 L 62 Respiratory Rate 14 14 14 Blood Pressure 145/89 H 171/87 H 157/84 H Pulse Oximetry 100 96 98 Oxygen Delivery Oxygen Flow Rate 12/21/23 14:47 12/21/23 18:47 12/21/23 20:00 Temperature 97.1 F L 96.7 F L Pulse Rate 57 L 80 Respiratory Rate 16 16 Blood Pressure 148/72 H 119/68 Pulse Oximetry 96 93 Oxygen Delivery Room Air Oxygen Flow Rate 12/21/23 22:21 12/22/23 02:36 12/22/23 05:45 Temperature 98.1 F 97.1 F L 97.0 F L Pulse Rate 58 L 50 L 55 L Respiratory Rate 18 14 14 Blood Pressure 123/65 122/66 122/64 Pulse Oximetry 94 94 96 Oxygen Delivery Oxygen Flow Rate Intake/Output Intake/Output: Intake & Output 12/19/23 12/20/23 12/21/23 12/22/23 23:59 23:59 23:59 23:59 Intake Total 4140 450 Output Total 5300 1250 Balance -1160 -800 Meds/Results Medications: Active Medications Generic Name Dose Route Start Last Admin Trade Name Freq PRN Reason Stop Dose Admin Acetaminophen 1,000 mg 12/22/23 06:55 12/22/23 07:00 Acetaminophen 500 Mg Tablet PO 1,000 mg Q6H PRN Administration Mild Pain (1-3) or Fever Hydrocodone Bitart/Acetaminophen 1 tab 12/21/23 13:02 12/22/23 07:08 Hydrocodone/Acetaminophen (*Crx) 5-325 Mg Tablet PO 1 tab Q4H PRN Administration Pain Rated 1-6 Cephalexin HCl 500 mg 12/22/23 13:00 Cephalexin 500 Mg Capsule PO QID [facility] Docusate Sodium 100 mg 12/21/23 17:00 12/21/23 16:26 Docusate Sodium 100 Mg Capsule PO 100 mg BID IRON Administration Empagliflozin 25 mg 12/22/23 09:00 Empagliflozin 25 Mg Tablet PO 01/21/24 08:59 QAM [facility] Hyoscyamine 0.125 mg 12/21/23 13:02 12/21/23 16:26 Hyoscyamine Sulfate 0.125 Mg Tablet SUBLINGUAL 0.125 mg Q6H PRN Administration Bladder Spasm Levothyroxine Sodium 112 mcg 12/22/23 06:30 12/22/23 05:59 Levothyroxine Sodium 112 Mcg Tablet PO 112 mcg DAILY@0630 IRON Administration Levothyroxine Sodium 25 mcg 12/22/23 06:30 12/22/23 05:59 Levothyroxine Sodium 25 Mcg Tablet PO 25 mcg DAILY@0630 IRON Administration Losartan Potassium 25 mg 12/22/23 09:00 Losartan Potassium 25 Mg Tablet PO DAILY IRON Morphine Sulfate 2 mg 12/21/23 1
[2023-12-22] MEDS: LOSARTAN POTASSIUM 25 MG TABLET PO (09:16)
[2023-12-22] MEDS: CHOLECALCIFEROL 1,000 UNITS TABLET 2000 UNITS PO (09:16)
[2023-12-22] MEDS: DOCUSATE SODIUM 100 MG CAPSULE PO (09:16)
--- NOTE | 2023-12-22 09:19 | PC.NURSE ---
Pt refused to Jardiance because he states that his PCP is stricted on the meds he takes. He states Farxiga is what he was given and is not comfortable taking Jardiance
[2023-12-22 10:47] VITALS: BP 113/68; PULSE 68; RESP 18; TEMP 36.9; O2SAT 95
--- NOTE | 2023-12-22 10:56 | WPDANESPN ---
Anes - Prog Note Post-Op Date/Time: 12/22/23 10:56 Cardiovascular status: normal Respiratory status: normal Airway patency: baseline Mental status: baseline Post-Op hydration status: normal Vital Signs: Last Vital Signs Temp 36.1 C L 12/22/23 05:45 Pulse 55 L 12/22/23 05:45 Resp 14 12/22/23 05:45 BP 122/64 12/22/23 05:45 Pulse Ox 96 12/22/23 05:45 O2 Del Method Room Air 12/21/23 20:00 O2 Flow Rate 6 12/21/23 12:25 Pain Score (VAS): 04/22 I/O: Intake & Output 12/21/23 12/22/23 12/22/23 23:59 07:59 15:59 Intake Total 790 450 0 Output Total 2000 1250 Balance -1210 -800 0 Laboratory Tests 12/22/23 05:52 12/22/23 05:52 12/21/23 12/21/23 12/22/23 10:43 12:17 05:52 Hgb 16.7 Hct 50.2 PT 14.8 H INR 1.1 APTT 31.1 Sodium 136 L Potassium 4.1 Chloride 102 Carbon Dioxide 25 Anion Gap 9 BUN 18 D Creatinine 0.90 Estim Creat Clear Calc 69 Estimated GFR > 60 Glucose 140 H POC Capillary Glucose 83 Calcium 8.1 L Post-procedural complaints: none Patient Feedback: Patient satisfied with anesthetic care.
[2023-12-22] MEDS: CEPHALEXIN 500 MG CAPSULE PO (13:05)
--- NOTE | 2023-12-22 14:37 | PM.DS ---
DS: Admitting Diagnosis Discharge Date 12/22/2023 Admitting Diagnosis BPH DS: Discharge Diagnosis Discharge Diagnosis (1) BPH loc w urin obs/LUTS: Code(s): N40.1 - Benign prostatic hyperplasia with lower urinary tract symptoms Status: Acute DS: Summary Hospital Course Hospital Course: This patient with longstanding prostatism refractory for medical management was admitted on the morning of his planned TURP. The procedure was undertaken on that same day in an uneventful fashion. His post-operative course was, likewise, uneventful. On the evening of the procedure he was tolerating a diet. On POD#1 his urine was clear on CBI. The urine remained clear and, therefore, the catheter was removed late morning. The patient was observed for several hours, until he demonstrated he could void effectively without significant hematuria. He was discharged with careful instruction on limiting physical activity x2 weeks and plans to f/ in 2-3 weeks. At discharge he was comfortable and tolerating a diet. Time Spent with Patient Time attestation: Total time spent providing and/or coordinating discharge services: DS: Data Data Completed and Pending Completed studies during hospitalization: Pending at discharge 12/21/23 11:54 Surgical [PTH] Routine Labs on day of discharge: Labs from last 24 hours 12/22/23 05:52 Hgb 16.7 Hct 50.2 Sodium 136 L Potassium 4.1 Chloride 102 Carbon Dioxide 25 Anion Gap 9 BUN 18 D Creatinine 0.90 Estim Creat Clear Calc 69 Estimated GFR > 60 Glucose 140 H Calcium 8.1 L Discharge Plan Discharge Patient Disposition: Home, Self-Care Discharge Instructions: 1) Activity: No lifting/straining >15lbs. x2 weeks. 2) Diet: Resume normal pre-admission diet. 3) Follow-up: 2-3 weeks / call office for appointment ([phone]). Stand Alone Forms: General Discharge Instructions Discharge Orders: Discharge Order (Routine); Ordered 12/22/23 Ordered By: Vlad Covington Discharge Medications: New hydrocodone-acetaminophen 5-325 mg tablet 1 - 2 tablet PO Q6H PRN (Reason: pain) Qty: 20 0RF cephalexin 500 mg capsule 500 mg PO Q8H Qty: 9 0RF docusate sodium [Colace] 100 mg capsule 100 mg PO DAILY Qty: 30 0RF Continued testosterone cypionate 100 mg/mL oil 125 mg IM .every 14 days Qty: 10 0RF losartan 25 mg tablet 25 mg PO DAILY cholecalciferol (vitamin D3) 50 mcg (2,000 unit) Tablet 50 mcg PO DAILY Adults Multivitamin 18 mg iron-400 mcg-25 mcg Tablet 1 tablet PO DAILY Farxiga 10 mg tablet 10 mg PO QAM Qty: 90 1RF rosuvastatin 20 mg tablet 20 mg PO EVERY OTHER DAY Qty: 90 1RF levothyroxine [Synthroid] 137 mcg tablet 137 mcg PO DAILY Qty: 90 1RF Discontinued finasteride 5 mg tablet 5 mg PO DAILY
[2023-12-22 14:47] VITALS: BP 125/55; PULSE 68; RESP 18; TEMP 36.2; O2SAT 95
--- NOTE | 2023-12-22 16:27 | PC.NURSE ---
RN discharged pt. Pt was taken to privately own vehicle via wheelchair. Pt had no question or concerns after going over DC documents.
== END 2023-12-22 16:25 | disposition home or self-care (01) ==
LOC: ANHSURGERY 10:01 → ANH3MEDSUR 13:05
PROVIDERS: Anesthesiology; PCP Physician Assistant; Visit Provider Urology
PROC: 0VT08ZZ Resection of Prostate, Via Natural or Artificial Opening Endoscopic (ICD-10-PCS; CPT 52601; principal; 2023-12-21 12:00)
DX: N40.1 Benign prostatic hyperplasia with lower urinary tract symptoms (principal); R35.0 Frequency of micturition; R39.15 Urgency of urination; R35.1 Nocturia; R39.198 Other difficulties with micturition; E89.0 Postprocedural hypothyroidism; E29.1 Testicular hypofunction; Z79.84 Long term (current) use of oral hypoglycemic drugs; Z79.890 Hormone replacement therapy
CPT/HCPCS: 52601; 36415; 80048; 82948; 85014; 85018; 85610; 85730; 88305; A9270; C1757; J0690; J1100; J2405; J2704; J3010; J7120; J7121

== ENCOUNTER 2024-04-08 14:53 | Outpatient (CLI) | payer MEDICARE, OTHER, SELFPAY ==
[2024-04-08 15:07] LABS: Basophils Percent Auto 0.5 % (0.2-1.2); Eosinophils Absolute Auto 0.1 K/mm3 (0-0.3); Eosinophils Percent Auto 1.4 % (0-4.4); Hematocrit 49.8 % (42.0-52.0); Hemoglobin 16.5 g/dL (14.0-18.0); Immature Granulocyte Absolute 0.02 K/mm3 (0.00-0.031); Immature Granulocyte Percent A 0.3 % (0-0.5); Lymphocytes Absolute Auto 1.55 K/mm3 (0.9-3.2); Lymphocytes Percent Auto 19.8 % (18.3-44.2); Mean Corpuscular HGB Conc 33.1 g/dl (32-36); Mean Corpuscular Hemoglobin 30.4 pg (26-34); Mean Corpuscular Volume 91.9 fl (80-100); Mean Platelet Volume 9.8 fl (7.4-10.4); Monocytes Absolute Auto 0.8 K/mm3 (0.1-0.6); Monocytes Percent Auto 9.6 % (2.6-8.5); Neutrophils Absolute Auto 5.3 K/mm3 (1.3-6.7); Neutrophils Percent Auto 68.4 % (45.5-73.1); Platelet Count Result 208 k/mm3 (150-375); Red Blood Count 5.42 M/mm3 (4.6-6.20); Red Cell Distribution Width 13.1 % (11.5-14.5); White Blood Count 7.8 K/mm3 (4.5-10.0)
[2024-04-08 16:44] LABS: Alanine Aminotransferase 30 U/L (6-50); Albumin Level 4.8 g/dL (3.5-5.1); Alkaline Phosphatase 54 U/L (38-126); Anion Gap 11 mmol/L (4-12); Aspartate Amino Transferase 57 U/L (17-59); Bilirubin,Total 0.6 mg/dL (0.2-1.3); Blood Urea Nitrogen 26 mg/dL (9-20); Carbon Dioxide 30 mmol/L (22-30); Chloride 103 mmol/L (98-107); Estimated Glomerular Filt Rate > 60; Glucose 75 mg/dL (65-110); Potassium 3.9 mmol/L (3.4-5.0); Sodium 144 mmol/L (137-145)
[2024-04-11 13:24] LABS: Erythropoietin (EPO) 12.3 mIU/mL (2.6-18.5)
== END 2024-04-08 14:54 | disposition home or self-care (01) ==
LOC: ANHLAB 14:55
PROVIDERS: PCP Physician Assistant; Visit Provider Internal Medicine Hematology & Oncology
DX: D75.1 Secondary polycythemia (principal); E34.9 Endocrine disorder, unspecified
CPT/HCPCS: 36415; 80053; 81270; 82668; 84402; 84403; 85025